=== PATIENT | male | born 1980 | race Caucasian/White ===

== ENCOUNTER 2018-03-14 11:58 | Emergency (ER) | payer SELFPAY ==
[2018-03-14] MEDS ORDERED: FOLIC ACID INJECTION - 1 MG, THIAMINE HCL 100 MG, MULTIVIT INJECTION ADULT 10 ML in SOD... IVPB ONE (12:12)
[2018-03-14 12:17] VITALS: BP 116/74; PULSE 95; TEMP 98.1; BMI 27.4
--- NOTE | 2018-03-14 12:27 | PDOC ---
History of Present Illness - General Chief Complaint: Chest Pain Stated Complaint: alcohol Time Seen by Provider: 03/14/18 12:03 History Source: Patient Exam Limitations: Intoxication - History of Present Illness Initial Comments: 03/14/18 12:23 37-year-old male brought in by ambulance for evaluation of alcohol intoxication. Patient went to the program for detox but did a breathalyzer which was reading high and so was sent here for evaluation. Patient also had stated chest pain to the intake physician but denied here upon arrival. Patient states drinks tequila daily and is employed as a building construction estimator. Patient currently denies headache, neck pain, chest pain, nausea, or fevers/chills. Timing/Duration: unsure Severity: moderate Associated Symptoms: reports: denies symptoms Past History - Travel Traveled outside of the country in the last 30 days: No Close contact w/someone who was outside of country & ill: No - Past Medical History Allergies/Adverse Reactions: Allergies Allergy/AdvReac Type Severity Reaction Status Date / Time No Known Allergies Allergy Verified 03/14/18 12:12 COPD: No CHF: No - Suicide/Smoking/Psychosocial Hx Smoking History: Never smoked Have you smoked in the past 12 months: No Information on smoking cessation initiated: No Hx Alcohol Use: No Drug/Substance Use Hx: No Patient Lives Alone: No Lives with/in: spouse/SO Review of Systems - Review of Systems Able to Perform ROS?: Yes Constitutional: No: Symptoms Reported HEENTM: No: Symptoms Reported Respiratory: No: Symptoms reported Cardiac (ROS): No: Symptoms Reported ABD/GI: No: Symptoms Reported : No: Symptoms Reported Musculoskeletal: No: Symptoms Reported Integumentary: No: Symptoms Reported Neurological: No: Symptoms reported Endocrine: No: Symptoms Reported Hematologic/Lymphatic: No: Symptoms Reported *Physical Exam - Vital Signs Last Vital Signs Temp Pulse Resp BP Pulse Ox 98.1 F 95 H 16 116/74 100 03/14/18 11:58 03/14/18 11:58 03/14/18 11:58 03/14/18 11:58 03/14/18 11:58 - Physical Exam General Appearance: Yes: Nourished, Appropriately Dressed, Intoxicated. No: Apparent Distress HEENT: positive: Pharynx Normal Neck: positive: Supple. negative: Tender, Decreased range of motion Respiratory/Chest: positive: Lungs Clear, Normal Breath Sounds. negative: Chest Tender, Respiratory Distress, Accessory Muscle Use Cardiovascular: positive: Regular Rhythm, Regular Rate. negative: Murmur Gastrointestinal/Abdominal: positive: Soft. negative: Tenderness Integumentary: positive: Normal Color, Warm, Moist Neurologic: positive: Motor Strength 5/5 (steady gait and ambulatory) Moderate Sedation - Procedure Monitoring Vital Signs: Procedure Monitoring Vital Signs Temperature 98.1 F 03/14/18 11:58 Pulse Rate 95 H 03/14/18 11:58 Respiratory Rate 16 03/14/18 11:58 Blood Pressure 116/74 03/14/18 11:58 O2 Sat by Pulse Oximetry (%) 100 03/14/18 11:58 Heart Score/ECG Review - ECG Intrepretation Rhythm: Regular Rhythm (rate 90, nsr) Medical Decision Making - Medical Decision Making 03/14/18 12:28 Clinical complaint. Patient sent here for evaluation of chest pain and intoxication. Patient denied discomfort presently. Patient denies any history of alcohol related seizure stating he does not drink alcohol every day. Exam: Patient is intoxicated but alert and oriented 3. Patient walked to the bathroom with steady gait Plan: EKG, labs, urine, IV fluids and will send to [facility] for detox as per his initial request 03/14/18 12:41 Patient came out of his room stating he wants to leave because he never said he had chest pain and feels as if they will not benefit him and is requesting to leave. Patient states he wants to go home sleep and eat because he has work tomorrow 03/14/18 12:43 Patient was escorted out of the ER with me without difficulty. Patient dialed on his phone for a cab *DC/Admit/Observation/Transfer Diagnosis at time of Disposition: Alcohol abuse - Discharge Dispostion Disposition: HOME Condition at time of disposition: Good - Referrals - Patient Instructions Printed Discharge Instructions: DI for Alcohol Abuse Additional Instructions: Please abstain from alcohol and go home and sleep eat and utilize alcohol anonymous to remain sober - Post Discharge Activity
--- NOTE | 2018-03-15 19:01 | EKG ---
Test Reason : Blood Pressure : / mmHG Vent. Rate : 090 BPM Atrial Rate : 090 BPM P-R Int : 150 ms QRS Dur : 080 ms QT Int : 362 ms P-R-T Axes : 065 055 036 degrees QTc Int : 442 ms NORMAL SINUS RHYTHM NORMAL ECG NO PREVIOUS ECGS AVAILABLE Confirmed by BRYAN URRUTIA MD ([id number]) on 03/15/2018 7:00:40 PM Referred By: Confirmed By:BRYAN URRUTIA MD
== END 2018-03-14 13:11 | disposition home or self-care (01) ==
LOC: JER 11:58
DX: F10.10 Alcohol abuse, uncomplicated (principal)
CPT/HCPCS: 93005; 93010; 99282-25; J7030